=== PATIENT | female | born 1975 | race Caucasian/White ===

== ENCOUNTER 2016-12-23 21:13 | Emergency (ER) | payer OTHER ==
[~2016-12-23] VITALS: Ht 152.4 cm; Wt 111.1 kg
[2016-12-23 21:13] VITALS: BP 113/73
[2016-12-23] MEDS ORDERED: ASPI1TAB PO (21:41)
[2016-12-23] MEDS ORDERED: CALC500C8 PO (21:41)
[2016-12-23] MEDS ORDERED: CYMB60CA3 PO (21:41)
[2016-12-23] MEDS ORDERED: PRED10TA PO (21:47)
[2016-12-23] MEDS ORDERED: timolol (21:47)
[2016-12-23] MEDS ORDERED: FOLI5CAP PO (21:47)
[2016-12-23] MEDS ORDERED: METH2.5TA PO (21:47)
[2016-12-23] MEDS ORDERED: MELO15TA4 PO (21:47)
[2016-12-23] MEDS ORDERED: OMEP40CA2 PO (21:47)
[2016-12-23] MEDS ORDERED: HYDROXYCHLOROQUINE PO (21:47)
[2016-12-23] MEDS ORDERED: MELA0.02 PO (21:47)
== END 2016-12-23 23:27 | disposition left against medical advice (07) ==
LOC: M ED 22:01
DX: R29.6 Repeated falls (principal); Z53.21 Procedure and treatment not carried out due to patient leaving prior to being seen by health care provider

== ENCOUNTER → 2017-09-09 | Outpatient (CLI) | payer OTHER ==
[~2017-09-09] MED LIST: ASPI1TAB PO; CALC500C8 PO; CYMB60CA3 PO; FOLI5CAP PO; HYDROXYCHLOROQUINE PO; MELA3TAB49 PO; MELO15TA4 PO; METH2.5TA PO; OMEP40CA2 PO; PRED10TA2 PO; timolol
[2017-09-09 16:49] LABS: ANION GAP 7 MEQ/L (8-16); BLOOD UREA NITROGEN 20 MG/DL (7-18); CALCIUM LEVEL 9.5 MG/DL (8.5-10.1); CARBON DIOXIDE LEVEL 28 MEQ/L (21-32); CHLORIDE LEVEL 103 MEQ/L (98-107); CREATININE FOR GFR 0.96 MG/DL (0.55-1.02); GLOMERULAR FILTRATION RATE > 60.0 (>58); GLUCOSE, FASTING 93 MG/DL (70-105); POTASSIUM SERUM 4.3 MEQ/L (3.5-5.1); SODIUM LEVEL 138 MEQ/L (136-145)
[2017-09-09 18:08] LABS: BASO % 0.4 % (0.0-1.0); EOS # 0.2 10^3/uL (0.0-0.50); EOS % 1.8 % (0.0-3.0); IMMATURE GRANULOCYTE % 0.6 % (0-0); LYMPH # 2.7 10^3/uL (1.5-4.5); LYMPH % 24.7 % (24.0-44.0); MEAN CORPUSCULAR HEMOGLOBIN 24.2 pg (27.0-33.0); MEAN CORPUSCULAR HGB CONC 30.9 g/dl (32.0-36.5); MEAN CORPUSCULAR VOLUME 78.4 fl (80.0-96.0); MONO % 8.9 % (0.0-5.0); NEUTROPHILS # 6.9 10^3/uL (1.8-7.7); NEUTROPHILS % 63.6 % (36.0-66.0); PLATELET COUNT, AUTOMATED 397 10^3/uL (150-450); RED CELL DISTRIBUTION WIDTH 18.6 % (11.5-14.5); WHITE BLOOD COUNT 10.8 10^3/uL (4.0-10.0)
== END ==
LOC: M WUC 12:09
PROVIDERS: ATTEND Physician Assistant
DX: A08.4 Viral intestinal infection, unspecified (principal)